=== PATIENT | female | born 1975 | race Native Hawaiian/Other Pacific Islander ===

== ENCOUNTER 2019-06-14 12:02 | Inpatient (IN) | payer BC ==
--- NOTE | 2019-06-14 13:07 | ED ---
General Adult HPI - General Chief complaint: Psychiatric Symptoms Stated complaint: mental health Time Seen by Provider: 06/14/19 12:32 Source: patient Mode of arrival: ambulatory Limitations: no limitations - History of Present Illness Initial comments: Dictation was produced using [employer] dictation software. please excuse any grammatical, word or spelling errors. Chief Complaint: 44-year-old female with depression and suicidal ideation and homicidality has chief complaint History of Present Illness: 44-year-old female with a last several days she's been having worsening depression, suicidal ideation and homicidal ideation. She reports that she's been more stressed out because she was from her for the last several months. Patient does not have a specific plan to harm herself or harm somebody else. Patient has any history of psychiatric disease. She has no medical complaints at this time. Denies any visual or auditory hallucinations. The ROS documented in this emergency department record has been reviewed and confirmed by me. Those systems with pertinent positive or negative responses have been documented in the HPI. All other systems are other negative and/or noncontributory. PHYSICAL EXAM: General Impression: Alert and oriented x3, not in acute distress HEENT: Normocephalic atraumatic, extra-ocular movements intact, pupils equal and reactive to light bilaterally, mucous membranes moist. Cardiovascular: Heart regular rate and rhythm, S1&S2 audible, no murmurs, rubs or gallops Chest: Lungs clear to auscultation bilaterally, no rhonchi, no wheeze, no rales Abdomen: Bowel sounds present, abdomen soft, non-tender, non-distended, no organomegaly Musculoskeletal: Pulses present and equal in all extremities, no peripheral edema Motor: no focal deficits noted Neurological: CN II-XII grossly intact, no focal motor or sensory deficits noted Skin: Intact with no visualized rashes Psych: Tearful ED course: 44 old female presents with suicidality, homicidality and depression after recent stressful personal life changes. However within acceptable limits. Patient medically cleared for EPS evaluation. Patient's evaluated by EPS. This we'll admit patient to inpatient psychiatry. - Related Data Home Medications Medication Instructions Recorded Confirmed No Known Home Medications 06/14/19 06/14/19 Allergies Allergy/AdvReac Type Severity Reaction Status Date / Time No Known Allergies Allergy Verified 06/14/19 14:38 Review of Systems ROS Statement: Those systems with pertinent positive or pertinent negative responses have been documented in the HPI. ROS Other: All systems not noted in ROS Statement are negative. Past Medical History Past Medical History: No Reported History History of Any Multi-Drug Resistant Organisms: None Reported Past Surgical History: No Surgical Hx Reported Past Psychological History: No Psychological Hx Reported Smoking Status: Current every day smoker Past Alcohol Use History: Occasional Past Drug Use History: None Reported General Exam Limitations: no limitations Course Vital Signs 06/14/19 12:24 Temperature 98.9 F Pulse Rate 99 Respiratory 18 Rate Blood Pressure 158/80 O2 Sat by Pulse 98 Oximetry Disposition Clinical Impression: Depression, Suicidal ideation Disposition: ADMITTED IP TO THIS HOSP Condition: Fair Referrals: Tata Naik MD [Primary Care Provider] - 1-2 days Decision Time: 17:28
[2019-06-14] MEDS ORDERED: MAG HYDROX/AL HYDROX/SIMETH 30 ML CUP PO PRN (18:20)
[2019-06-14] MEDS ORDERED: LORazepam 1 MG TAB PO PRN (18:20)
[2019-06-14] MEDS ORDERED: MAGNESIUM HYDROXIDE 2,400 MG/10 ML CUP PO PRN (18:20)
[2019-06-14] MEDS ORDERED: ACETAMINOPHEN TAB 325 MG TAB PO PRN (18:20)
[2019-06-14] MEDS ORDERED: LORazepam 2 MG/ML INJ IM PRN (18:22)
[2019-06-14] MEDS ORDERED: OLANZapine ODT 5 MG TAB PO PRN (18:23)
[2019-06-14] MEDS ORDERED: NICOTINE 14MG/24HR PATCH TRANSDERM SCH (18:30)
[2019-06-14 21:18] LABS: Appearance,Urine Cloudy (Clear); Bilirubin,Urine Negative (Negative); Blood,Urine Negative (Negative); Color,Urine Yellow; Glucose,Urine (UA) Negative (Negative); Ketones,Urine Trace (Negative); Leukocyte Esterase,Urine Large (Negative); Mucus,Urine Many /hpf; Nitrite,Urine Negative (Negative); Protein,Urine Trace (Negative); RBC,Urine 4 /hpf (0-5); Specific Gravity,Urine 1.027 (1.001-1.035); Squamous Epithelial Cell,Urine 17 /hpf (0-4); WBC,Urine 32 /hpf (0-5)
[2019-06-14 21:25] LABS: Amphetamine Screen,Urine Not Detected (NotDetected); Barbiturate Screen,Urine Not Detected (NotDetected); Benzodiazepines Screen,Urine Not Detected (NotDetected); Cocaine Screen,Urine Not Detected (NotDetected); Methadone Screen, Urine Not Detected (NotDetected); Opiate Screen,Urine Not Detected (NotDetected); Oxycodone Screen, Urine Not Detected (NotDetected); Phencyclidine Screen,Urine Not Detected (NotDetected); Tricyclic Antidepressant,Urine Not Detected (NotDetected); Urn Cannabinoid Scrn Not Detected (NotDetected)
[2019-06-15 09:33] LABS: Basophils % (A) 0 %; Eosinophils # (A) 0.1 k/uL (0-0.7); Eosinophils % (A) 1 %; HCT 40.6 % (34.0-46.0); Lymphocytes # (A) 1.7 k/uL (1.0-4.8); Lymphocytes % (A) 20 %; MCH 28.6 pg (25.0-35.0); MCHC 34.5 g/dL (31.0-37.0); MCV 82.7 fL (80.0-100.0); Mean Platelet Volume 9.3; Monocytes # (A) 0.2 k/uL (0-1.0); Monocytes % (A) 3 %; Neutrophils # (A) 6.4 k/uL (1.3-7.7); Neutrophils % (A) 76 %; Platelet Count 300 k/uL (150-450); Poikilocytosis Slight; RDW 15.1 % (11.5-15.5); WBC 8.5 k/uL (3.8-10.6)
[2019-06-15 09:43] LABS: ALT 75 U/L (4-34); AST 69 U/L (14-36); African American GFR (CKD) >90 (>60 ml/min/1.73 sqM); Alkaline Phosphatase 66 U/L (38-126); Anion Gap 14 mmol/L; Blood Urea Nitrogen 16 mg/dL (7-17); Calcium 9.7 mg/dL (8.4-10.2); Carbon Dioxide 24 mmol/L (22-30); Chloride 102 mmol/L (98-107); Cholesterol 193 mg/dL (<200); Glucose 156 mg/dL (74-99); HDL Cholesterol 61 mg/dL (40-60); LDL Cholesterol,Calculated 98 mg/dL (0-99); Non-African American GFR(CKD) >90 (>60 ml/min/1.73 sqM); Potassium 4.5 mmol/L (3.5-5.1); Sodium 140 mmol/L (137-145); Total Bilirubin 1.1 mg/dL (0.2-1.3); Total Protein 8.4 g/dL (6.3-8.2); Triglycerides 172 mg/dL (<150)
--- NOTE | 2019-06-15 11:42 | P.CONS ---
History of Present Illness - Reason for Consult Consult date: 06/15/19 medical evaluation - Chief Complaint depressed - History of Present Illness Vivian Jang is a 44 yo F with no PMH who presented to the ED complaining of severe depression, suicidal ideation, anhedonia. She states that she has been from her for approx 6 months and moved to an apartment in [place]. She had been trying to stay strong for her children and not let them see her sadness. Her son is currently staying with a friend's family so he wouldn't have to move to [place] and change schools. Recently her son was sick and when the doctor asked if anyone had been sick at home he said that his brother and mother were (referring to friend and friend's mom.) Pt states that that threw her into a profound depression and she feels that her children don't see how much she has been going through and her son is not there for her. Pt denies any other medical complaints and feels physically well but expresses a desire to get mentally together for her children. Review of Systems All systems: negative Constitutional: Denies chills, Denies fever Eyes: denies blurred vision, denies pain Ears, nose, mouth and throat: Denies headache, Denies sore throat Cardiovascular: Denies chest pain, Denies shortness of breath Respiratory: Denies cough Gastrointestinal: Denies abdominal pain, Denies diarrhea, Denies nausea, Denies vomiting Genitourinary: Denies dysuria, Denies hematuria Musculoskeletal: Denies myalgias Integumentary: Denies pruritus, Denies rash Neurological: Denies numbness, Denies weakness Psychiatric: Reports as per HPI, Reports anhedonia, Reports anxiety, Reports depression, Reports difficulty concentrating, Reports insomnia, Reports sadne ss/tearfulness, Reports sleep disturbances, Reports suicidal ideation Endocrine: Denies fatigue, Denies weight change Past Medical History Past Medical History: No Reported History History of Any Multi-Drug Resistant Organisms: None Reported Past Surgical History: No Surgical Hx Reported Past Psychological History: No Psychological Hx Reported Smoking Status: Never smoker Past Alcohol Use History: Occasional Past Drug Use History: None Reported Medications and Allergies Home Medications Medication Instructions Recorded Confirmed Type No Known Home Medications 06/14/19 06/14/19 History Allergies Allergy/AdvReac Type Severity Reaction Status Date / Time No Known Allergies Allergy Verified 06/14/19 18:41 Physical Exam Vitals: Vital Signs Temp Pulse Pulse Resp BP BP Pulse Ox 06/15/19 06:49 98 F 85 16 138/79 06/14/19 18:30 97.7 F 101 H 18 131/96 97 06/14/19 18:07 98.9 F 99 18 146/78 98 06/14/19 13:28 98.9 F 99 18 146/78 98 06/14/19 12:24 98.9 F 99 18 158/80 98 Intake and Output 06/14/19 06/15/19 06/15/19 22:59 06:59 14:59 Other: Weight 59.9 kg General: well nourished, well developed, NAD. Vitals reviewed Eyes: PERRL, EOMI, conjunctiva normal HENT: normocephalic, mucus membranes moist Neck: supple, no JVD Lungs: normal respiratory effort, no wheezes or rales CV: Regular rate and rhythm, no murmur. Peripheral pulses 2+ Abdomen: soft, nondistended, no organomegaly Lymph: no cervical or axillary LAD Skin: warm and dry. Neuro: A&Ox3, depressed mood and affect. tearful discussing her family Results CBC & Chem 7: 06/15/19 08:41 06/15/19 08:41 Labs: Abnormal Lab Results - Last 24 Hours (Table) 06/14/19 06/15/19 Range/Units 20:50 08:41 Glucose 156 H (74-99) mg/dL AST 69 H (14-36) U/L ALT 75 H (4-34) U/L Total Protein 8.4 H (6.3-8.2) g/dL Triglycerides 172 H (<150) mg/dL HDL Cholesterol 61 H (40-60) mg/dL Urine Appearance Cloudy H (Clear) Urine Protein Trace H (Negative) Urine Ketones Trace H (Negative) Ur Leukocyte Esterase Large H (Negative) Urine WBC 32 H (0-5) /hpf Ur Squamous Epith Cells 17 H (0-4) /hpf Urine Mucus Many H (None) /hpf Assessment and Plan (1) Severe major depression without psychotic features Current Visit: Yes Status: Acute Code(s): F32.2 - MAJOR DEPRESSV DISORD, SINGLE EPSD, SEV W/O PSYCH FEATURES SNOMED Code(s): 25220991 (2) Suicidal ideation Current Visit: Yes Status: Acute Code(s): R45.851 - SUICIDAL IDEATIONS SNOMED Code(s): 5876264 Plan: 1. Major depressive disorder, severe. Suicidal ideation. Management per psychiatry 2. Positive urine leukocyte esterase. Neg nitrate and asymptomatic. Urine culture. Hold abx at this time
[2019-06-15] MEDS ORDERED: traZODone HCL 50 MG TAB PO PRN (13:26)
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
[2019-06-15] MEDS: SERTRALINE 25 MG TAB PO SCH (13:49)
[2019-06-15 14:28] VITALS: BMI 25.7
[2019-06-15 17:52] LABS: Hemoglobin A1C 4.9 % (4.0-6.0)
[2019-06-16] MEDS: SERTRALINE 25 MG TAB PO SCH (10:07)
--- NOTE | 2019-06-16 12:06 | P.PN ---
Progress Note - Text Progress Note Date: 06/16/19 Chief complaint: "I feel better today" Subjective: The patient has been seen today as follow-up, chart reviewed, case discussed with the treatment team. Patient slept about 6 hours last night. Patient has been going to some groups and other unit activities. Patient reports better appetite. She reports still feeling depressed with lack of motivation but she is trying to go to groups and avoid isolation. Denies suicidal ideation or wishes to . Reports still has high anxiety with racing thoughts for most of the time. The patient is compliant with her medications and denies any adverse reactions. The patient denies any manic symptoms including sustained period of time with elevated or irritable mood, impulsive or irrational behavior, inflated self- esteem, or absence need to sleep due to increases goal-directed activities. The patient denies any auditory or visual hallucinations. Also the patient denies any paranoid ideation. Objective: Vitals has been reviewed. MENTAL STATUS EVALUATION: Appearance: Appears stated age, fairly groomed, below average body built, and no specific features. Gait/ posture: Steady gait, normal arm swinging, no abnormal movements, with relaxed posture. Attitude and Behavior: Cooperative, related to the interviewer in socially accepted manner, normal eye contact during course of interview. Motor Activity: Normal psychomotor activity. Speech: spontaneous, Slow rate, rhythm, and articulation. normal volume. not pressured. Language: Articulating. Mood: depressed Affect: Restricted. Thought process: Linear, goal-directed. Association: Intact. Thought content: No delusions, Denies suicidal thoughts, Denies homicidal thoughts, Denies intentions, or plans. Perception: Denies any hallucinations Alertness: No impairment. Orientation: Oriented to time, preson, place and situation. Insight regarding psychiatric condition: Fair Judgment regarding daily activities and social situation: Fair Impulse control: Fair Assessment: Major depressive disorder, single episode, moderate-severe, without psychotic features. Plan: Continue inpatient level of care due to need for further management on medications. Precautions: Continue 15 minutes check for safety. Consider medical consultation if any acute medical issues arise. Provide the patient individual, group therapy, substance use disorder counseling to give better insight and learn coping skills. Medications: Increase Zoloft 50 mg once a daily for depression. Continue trazodone 50 mg at bedtime to help with insomnia and depression symptoms. Start Vistaril 25 mg QID PRN for anxiety Discharge patient to OUTPATIENT services upon a stabilization Prognosis: some improvement Expected LOS: 2-4
[2019-06-16] MEDS ORDERED: hydrOXYzine PAMOATE 25 MG CAP PO PRN (12:07)
[2019-06-17 06:16] VITALS: RESP 16
[2019-06-17] MEDS: SERTRALINE 50 MG TAB PO SCH (10:30)
--- NOTE | 2019-06-17 12:30 | P.PN ---
Progress Note - Text Progress Note Date: 06/17/19 Chief complaint: "I feel good today" Subjective: The patient has been seen today as follow-up, chart reviewed, case discussed with the treatment team. Patient slept about 6 hours last night and she reports feeling rested and had good sleep. Patient has been going to some groups and other unit activities. Patient reports good appetite. She reports feeling much better today and greatly minimizes depression, and denies feeling hopeless, worthless or suicidal. She denies any mood swings, severe anxiety or homicidal ideation. She clearly denies any thoughts to hurt her or destroy any of his properties "I was angry before and I know how to handle this feeling better now". The patient is compliant with her medications and denies any adverse reactions. The patient denies any manic or psyhcotic symptoms . Objective: Vitals has been reviewed. MENTAL STATUS EVALUATION: Appearance: Appears stated age, fairly groomed, below average body built, and no specific features. Gait/ posture: Steady gait, normal arm swinging, no abnormal movements, with relaxed posture. Attitude and Behavior: Cooperative, related to the interviewer in socially accepted manner, normal eye contact during course of interview. Motor Activity: Normal psychomotor activity. Speech: spontaneous, Slow rate, rhythm, and articulation. normal volume. not pressured. Mood: "fine" Affect: Appropriate Thought process: Linear, goal-directed. Association: Intact. Thought content: No delusions, Denies suicidal thoughts, Denies homicidal thoughts, Denies intentions, or plans. Perception: Denies any hallucinations Alertness: No impairment. Orientation: Oriented to time, person, place and situation. Insight regarding psychiatric condition: Fair Judgment regarding daily activities and social situation: Fair Impulse control: Fair Assessment: Major depressive disorder, single episode, moderate-severe, without psychotic features. Plan: Continue inpatient level of care due to need for further stabilization, and discharge planning. Precautions: Continue 15 minutes check for safety. Consider medical consultation if any acute medical issues arise. Provide the patient individual, group therapy, substance use disorder counseling to give better insight and learn coping skills. Medications: Continue Zoloft 50 mg once a daily for depression. Continue trazodone 50 mg at bedtime to help with insomnia and depression symptoms. Continue Vistaril 25 mg QID PRN for anxiety Discharge patient to OUTPATIENT services upon a stabilization Prognosis: some improvement Expected LOS: 1-2
[2019-06-18 06:27] VITALS: BP 133/69; PULSE 73; TEMP 96.8
[2019-06-18] MEDS: SERTRALINE 50 MG TAB PO SCH (09:22)
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
== END 2019-06-18 13:15 | disposition home or self-care (01) | DRG 885 ==
LOC: EC 12:02 → 3MHU 18:05
PROVIDERS: ADMIT Psychiatry & Neurology Psychiatry; ATTEND Psychiatry & Neurology Psychiatry
DX: F32.2 Major depressive disorder, single episode, severe without psychotic features (principal); R45.851 Suicidal ideations; F17.200 Nicotine dependence, unspecified, uncomplicated; R45.850 Homicidal ideations; F41.9 Anxiety disorder, unspecified; G47.00 Insomnia, unspecified
CPT/HCPCS: 80053; 80061; 80306; 81001; 81025; 82075; 83036; 84443; 85025; 87086; 99285

== ENCOUNTER → 2020-02-08 | Outpatient (CLI) | payer BC ==
--- NOTE | 2020-02-08 13:42 | MM ---
Reason for exam: screening (asymptomatic). Baseline mammogram. Physical Findings: Nurse did not find any significant physical abnormalities on exam. MG 3D Screening Mammo W/Cad Bilateral CC and MLO view(s) were taken. The breast tissue is heterogeneously dense. This may lower the sensitivity of mammography. There is no discrete abnormality. These results were verbally communicated with the patient and result sheet given to the patient on 02/08/20. ASSESSMENT: Negative, BI-RAD 1 RECOMMENDATION: Routine screening mammogram of both breasts in 1 year.
== END | disposition home or self-care (01) ==
LOC: RADMAMWWP 13:06
PROVIDERS: ATTEND Family Medicine
DX: Z12.31 Encounter for screening mammogram for malignant neoplasm of breast (principal)
CPT/HCPCS: 77063; 77067